=== PATIENT | male | born 2000 | race Caucasian/White ===

== ENCOUNTER 2019-11-04 03:22 | Emergency (ER) | payer OTHER ==
[~2019-11-04] VITALS: Ht 177.8 cm; Wt 72.6 kg
[2019-11-04 04:02] LABS: HEMATOCRIT 45.2 % (42.0-52.0); HEMOGLOBIN 15.6 gm/dL (14.0-18.0); MCH 33.3 pg (26.0-34.0); MCHC 34.6 g/dL (28.0-37.0); MCV 96.3 fL (80.0-100.0); MPV 7.4 fl. (7.2-11.1); RBC 4.69 mil/uL (4.50-6.00); RDW-CV 13.3 % (10.5-14.5)
[2019-11-04 04:11] LABS: CALCIUM 9.1 mg/dL (8.5-10.1); CREATININE 0.8 mg/dL (0.6-1.3)
[2019-11-04 04:16] LABS: ALBUMIN 4.8 g/dL (3.4-5.0); TOTAL BILIRUBIN 0.3 mg/dL (<0.1-1.0); TOTAL PROTEIN 8.1 g/dL (6.4-8.2)
[2019-11-04 04:21] LABS: ALCOHOL < 10 mg/dL (<10); SALICYLATE 5.5 mg/dL (2.8-20.0)
[2019-11-04 04:25] LABS: ACETAMINOPHEN < 2 ug/mL (10-30)
[2019-11-04 05:23] LABS: URINE BILIRUBIN NEGATIVE (Negative); URINE BLOOD NEGATIVE (Negative); URINE CLARITY CLEAR; URINE COLOR YELLOW; URINE GLUCOSE-RANDOM NEGATIVE (Negative); URINE KETONES NEGATIVE (Negative); URINE LEUKOCYTES NEGATIVE (Negative); URINE NITRITE NEGATIVE (Negative); URINE PROTEIN NEGATIVE (Negative); URINE SPECIFIC GRAVITY 1.015 (1.005-1.030); URINE UROBILINOGEN 0.2 E.U./dl (0.2-1.0)
[2019-11-04 05:29] LABS: AMP/METHAMP Negative (Negative); BARBITURATES Negative (Negative); BENZODIAZEPINES Negative (Negative); COCAINE Negative (Negative); METHADONE Negative (Negative); OPIATES Negative (Negative); PCP Negative (Negative); THC POSITIVE (Negative)
[2019-11-04 14:48] VITALS: BP 115/62
== END 2019-11-04 14:48 | disposition still patient (30) ==
LOC: M.ERS 03:22
PROVIDERS: Personal Emergency Response Attendant
DX: R45.851 Suicidal ideations (principal); R03.0 Elevated blood-pressure reading, without diagnosis of hypertension